=== PATIENT | male | born 1975 | race Caucasian/White ===

== ENCOUNTER 2020-08-21 15:01 | Emergency (ER) | payer OTHER, SELFPAY ==
--- NOTE | ~2020-08-21 | XR_ITS ---
EXAMINATION: XR knee LT 2V EXAM DATE: 08/21/2020 16:15 INDICATION: Left knee pain after fall today. TECHNIQUE: Three projections of the left knee. There is no prior study for comparison. FINDINGS: Lateral to the left distal femoral condyle there is ossific density which is most consiste nt with an avulsion fracture of the lateral collateral ligament of the knee capsule. Check for point tenderness at this location. This finding has been indicated, marked on the examination for review, c linical correlation. There is a small joint effusion or hemarthrosis. There are 2 screws in the tibial tuberosity, could b e repair of the patellar tendon. IMPRESSION: Probable acute avulsion off the lateral femoral condyle. Reviewed, dictated and finalized at location G. [facility]
[2020-08-21 15:33] VITALS: PULSE 112; RESP 18; TEMP 37; O2SAT 98
--- NOTE | 2020-08-21 17:02 | ED.LOWEXIN ---
HPI - Extremity Injury (Lower) General Chief Complaint: Extremity Injury, Lower Stated Complaint: left knee pain, recent surgery Time Seen by Provider: 08/21/20 16:24 Source: patient Mode of arrival: ambulatory Limitations: no limitations History of Present Illness HPI Narrative: Patient is a 45-year-old male who presents after slip and fall on snow injuring left knee. Patient reports a history surgery on left knee. He reports he slid and felt something pop. He did report falling to the ground, but denies hitting head. Upon further assessment, patient has a laceration to posterior scalp. Bleeding controlled. He denies LOC, he denies head or neck pain at this time. Patient denies any significant medical history or taking any [id number] medications prior to arrival. MD complaint: knee injury Related Data Allergies Allergy/AdvReac Type Severity Reaction Status Date / Time No Known Allergies Allergy Verified 08/21/20 15:37 Review of Systems Review of Systems: Narrative: CONSTITUTIONAL: Denies fever, chills, or sweats. EYES: Denies visual changes, redness, or discharge. ENT: Denies rhinorrhea, congestion, sore throat, or otalgia. CARDIOVASCULAR: Denies chest pain, palpitations, or edema. RESPIRATORY: Denies cough or dyspnea. GASTROINTESTINAL: Denies abdominal pain, nausea, vomiting, or diarrhea. GENITOURINARY: Denies dysuria or hematuria. SKIN: Laceration posterior scalp MUSCULOSKELETAL: Left knee pain NEUROLOGIC: Denies headache, numbness, dizziness, or weakness. PSYCHIATRIC: Denies anxiety or depression. [facility] Past Medical History Medical History Depression Hepatitis C Heroin addiction Surgical History Surgical History History of appendectomy Family History Family History (Updated 08/21/20 @ 17:06 by THAI Lei) Other No significant family history Social History Social History (Updated 08/21/20 @ 17:07 by THAI Lei) Smoking status: Current every day smoker Tobacco type: cigarettes Alcohol intake: current Alcohol use details: Occasional Substance use: former Substance use type: former substance user and heroin Living arrangements: with family Occupation/Education: occupation Comments At the time of signature, I have reviewed and agree with nursing past medical, surgical, social, and family history unless otherwise noted. Please see nursing chart for further information. There is no relevant family history pertinent to the presenting complaint. Exam Narrative: Exam Narrative: GENERAL: Well-appearing, well-nourished, and in no acute distress. HEAD: Normocephalic, atraumatic. EYES: EOMI. No redness or drainage. Conjunctiva are normal. ENT: Mucous membranes pink and moist. CHEST: No respiratory distress. HEART: Regular rate and rhythm. EXTREMITIES: Tenderness with palpation to left knee, mild edema noted, distal sensation intact, good capillary refill SKIN: Approximate 2 cm laceration to posterior scalp NEURO: No focal deficits. Alert and oriented x3. Gait steady. PSYCH: Normal affect. No signs of depression or anxiety. Course Vital Signs Vital signs: Vital Signs Temperature 37.0 C 08/21/20 15:33 Pulse Rate 112 H 08/21/20 15:33 Respiratory Rate 18 08/21/20 15:33 Pulse Oximetry 98 08/21/20 15:33 Temperature 37.0 C 08/21/20 15:33 Pulse Rate 78 08/21/20 17:11 Respiratory Rate 16 08/21/20 17:11 Blood Pressure 133/75 08/21/20 17:11 Pulse Oximetry 100 08/21/20 17:11 Procedures Laceration Laceration 1: Date: 08/21/20 Time: 17:28 Site: scalp Size (cm): 2 Description: linear Depth: simple, single layer Local Anesthetic: none ====== Skin Level ====== Skin layer closed with: thelma (4 thelma) ====== Subcutaneous Layer ====== =====
[2020-08-21 17:11] VITALS: BP 133/75; PULSE 78; RESP 16; O2SAT 100
--- NOTE | 2020-08-21 17:20 | PC.NURSE ---
CORWIN GORDON AT BEDSIDE PLACING JACQUELINE IN POSTERIOR HEAD. PT STILL REFUSING CT SCAN AT THIS TIME.
[2020-08-21 17:37] VITALS: BP 133/59; PULSE 78; RESP 16; O2SAT 100
== END 2020-08-21 17:38 | disposition home or self-care (01) ==
PROVIDERS: Emergency Provider Nurse Practitioner
DX: S72.412A Displaced unspecified condyle fracture of lower end of left femur, initial encounter for closed fracture (principal); S01.01XA Laceration without foreign body of scalp, initial encounter; Z86.19 Personal history of other infectious and parasitic diseases; F17.210 Nicotine dependence, cigarettes, uncomplicated; W00.0XXA Fall on same level due to ice and snow, initial encounter
CPT/HCPCS: 12001; 73560; 99283